=== PATIENT | female | born 1960 | race Caucasian/White ===

== ENCOUNTER 2016-08-19 20:15 | Emergency (ER) | payer OTHER ==
[2016-08-19 20:39] VITALS: RESP 16; TEMP 98.7
[2016-08-19] MEDS ORDERED: HYDROmorphone 1 MG/ML 1 ML SYRINGE IVP STA ×2 (21:05→23:28)
[2016-08-19] MEDS ORDERED: ONDANSETRON 4 MG/2 ML VIAL IVP STA (21:23)
[2016-08-19 21:45] LABS: Basophils % (A) 1 %; CH 30.4; CHCM 33.6; Eosinophils # (A) 0.1 k/uL (0-0.7); Eosinophils % (A) 2 %; HCT 43.9 % (34.0-46.0); HDW 2.52; HGB 14.3 gm/dL (11.4-16.0); Luc # (Auto) 0.14; Luc % (Auto) 2; Lymphocytes # (A) 1.3 k/uL (1.0-4.8); Lymphocytes % (A) 19 %; MCH 29.6 pg (25.0-35.0); MCHC 32.6 g/dL (31.0-37.0); MCV 90.8 fL (80.0-100.0); Mean Platelet Volume 7.3; Monocytes # (A) 0.4 k/uL (0-1.0); Monocytes % (A) 6 %; Neutrophils # (A) 4.7 k/uL (1.3-7.7); Neutrophils % (A) 71 %; RBC 4.83 m/uL (3.80-5.40); RDW 13.2 % (11.5-15.5); WBC 6.6 k/uL (3.8-10.6); WBC (Perox) 6.86
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
[2016-08-19 22:00] LABS: ALT 94 U/L (9-52); AST 94 U/L (14-36); Alcohol <10 mg/dL; Alkaline Phosphatase 51 U/L (38-126); Anion Gap 15 mmol/L; Blood Urea Nitrogen 20 mg/dL (7-17); Calcium 10.6 mg/dL (8.4-10.2); Carbon Dioxide 25 mmol/L (22-30); Chloride 102 mmol/L (98-107); Glucose 117 mg/dL (74-99); Non-African American GFR(MDRD) >60 (>60 ml/min/1.73 sqM); Potassium 4.1 mmol/L (3.5-5.1); Sodium 142 mmol/L (137-145); Total Bilirubin 0.5 mg/dL (0.2-1.3); Total Protein 8.5 g/dL (6.3-8.2)
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
[2016-08-19 22:43] LABS: INR 1.1 (<1.1); Partial Thromboplastin Time 24.9 sec (22.0-30.0); Prothrombin Time 10.7 sec (9.0-12.0)
--- NOTE | 2016-08-19 23:11 | XR ---
EXAM: XR Left Shoulder Complete, 2 or More Views. CLINICAL HISTORY: Reason: trauma TECHNIQUE: Two or more views of the left shoulder. COMPARISON: No relevant prior studies available. FINDINGS: Bones/joints: No evidence of fracture, dislocation or bony erosion. No significant arthritic changes. Soft tissues: Unremarkable. IMPRESSION: No acute bone or joint abnormalities.
--- NOTE | 2016-08-19 23:13 | XR ---
EXAM: XR Chest, 2 Views. CLINICAL HISTORY: Reason: trauma TECHNIQUE: Frontal and lateral views of the chest. COMPARISON: No relevant prior studies available. FINDINGS: Lungs: Lungs are clear. Pleural space: No evidence of pleural effusion. No pneumothorax. Heart: Heart size and mediastinal structures are within normal limits. Mediastinum: Unremarkable. Bones/joints: Unremarkable. IMPRESSION: No evidence of active chest disease.
--- NOTE | 2016-08-19 23:15 | XR ---
EXAM: XR Pelvis, 1 or 2 Views. CLINICAL HISTORY: Reason: Trauma TECHNIQUE: Frontal view of the pelvis. COMPARISON: No relevant prior studies available. FINDINGS: Bones/joints: Sacroiliac joints appear intact bilaterally. No pelvic fracture is identified. No dislocation. Soft tissues: Unremarkable. IMPRESSION: No significant pelvic bony abnormalities. No fractures identified.
--- NOTE | 2016-08-19 23:17 | XR ---
EXAM: XR Left Wrist, 2 Views. CLINICAL HISTORY: Reason: Pain TECHNIQUE: Frontal and lateral views of the left wrist. COMPARISON: No relevant prior studies available. FINDINGS: Bones/joints: No evidence of fracture or dislocation. No bony erosive or bony destructive changes identified. Soft tissues: Unremarkable. No radiopaque foreign body. IMPRESSION: No evidence of fracture or dislocation.
[2016-08-19 23:29] VITALS: BP 112/55; PULSE 87
== END 2016-08-20 00:10 | disposition home or self-care (01) ==
LOC: EC 20:15
DX: S06.0X0A Concussion without loss of consciousness, initial encounter (principal); S40.012A Contusion of left shoulder, initial encounter; M54.2 Cervicalgia; M25.532 Pain in left wrist; R10.2 Pelvic and perineal pain; E78.5 Hyperlipidemia, unspecified; I10 Essential (primary) hypertension; M79.7 Fibromyalgia; Z87.891 Personal history of nicotine dependence; Z79.899 Other long term (current) drug therapy; Z79.891 Long term (current) use of opiate analgesic; Z79.82 Long term (current) use of aspirin; Z91.013 Allergy to seafood; Z88.8 Allergy status to other drugs, medicaments and biological substances; V58.5XXA Driver of pick-up truck or van injured in noncollision transport accident in traffic accident, initial encounter; Y92.410 Unspecified street and highway as the place of occurrence of the external cause
CPT/HCPCS: 99284; 96374; 96375; 96376; 36415; 80053; 85025; 85610; 85730; 80320; 71020; 72170; 73030; 73110; 72125; 70450; 70480; J2405; J1170

== ENCOUNTER 2016-12-06 06:57 | Day surgery (SDC) | payer MEDICARE, OTHER ==
[2016-12-04 11:13] VITALS: BMI 36.7
[~2016-12-06 06:57] MED LIST: LACTATED RINGERS 1,000 ML IV SCH
[2016-12-06 07:30] VITALS: TEMP 98.2
[2016-12-06 07:35] LABS: Glucose,Whole Blood 81 mg/dL (75-99)
[2016-12-06] MEDS ORDERED: MIDAZOLAM 2 MG/2 ML VIAL ONE (07:40)
[2016-12-06] MEDS ORDERED: PROPOFOL 10 MG/ML 20 ML VIAL IV ONE (07:40)
[2016-12-06] MEDS ORDERED: fentaNYL (PF) 50 MCG/ML 2 ML AMP ONE (07:40)
--- NOTE | 2016-12-06 07:49 | P.GSHP ---
History of Present Illness H&P Date: 12/06/16 Chief Complaint: Peptic ulcer disease This is a 56-year-old female. She has complaints of epigastric dull pain. She has history of peptic ulcer disease and GERD. Past Medical History Past Medical History: Diabetes Mellitus, Deep Vein Thrombosis (DVT), Fibromyalgia, Hyperlipidemia, Hypertension Additional Past Medical History / Comment(s): HX ofBILATERAL LEG DVT'S;LUPUS. History of Any Multi-Drug Resistant Organisms: None Reported Past Surgical History: Bladder Surgery, Cholecystectomy, Hysterectomy Additional Past Surgical History / Comment(s): LEFT FOOT SURGERY;STOMACH SURGERY -LAP ELLI;LEFT BREAST TUMOR REMOVAL- BENIGN. Past Anesthesia/Blood Transfusion Reactions: Postoperative Nausea & Vomiting ( PONV) Smoking Status: Former smoker - Past Family History Father Family Medical History: Coronary Artery Disease (CAD), Myocardial Infarction ([place] ) Mother Family Medical History: Cancer, Coronary Artery Disease (CAD), Myocardial Infarction ([place]), Renal Disease Additional Family Medical History / Comment(s): DIALYSIS. Medications and Allergies Home Medications Medication Instructions Recorded Confirmed Type Ergocalciferol [Vitamin D2 1 tab PO Q7D 12/21/13 12/06/16 History (DRISDOL)] Fenofibrate Nanocrystallized 145 mg PO HS 12/21/13 12/06/16 History [Tricor] HYDROcodone/APAP 10-325MG [[place] 1 tab PO QID 12/21/13 12/06/16 History 10-325] Losartan-Hctz 50-12.5 mg [Hyzaar 1 tab PO DAILY 12/21/13 12/06/16 History 50-12.5] Pravastatin Sodium [Pravachol] 40 tab PO HS 12/21/13 12/06/16 History hydrOXYzine HCL 1 tab PO QID 12/21/13 12/06/16 History Omeprazole [PriLOSEC] 40 mg PO HS 12/14/14 12/06/16 History Aspirin 325 mg PO DAILY 12/16/14 12/06/16 History Sertraline HCl [Zoloft] 75 mg PO HS 12/04/16 12/06/16 History Sertraline [Zoloft] 50 mg PO QAM 12/04/16 12/06/16 History glipiZIDE [Glucotrol] 5 mg PO AC-BID 12/04/16 12/06/16 History Allergies Allergy/AdvReac Type Severity Reaction Status Date / Time iodine Allergy Unknown Verified 12/04/16 11:01 shellfish derived [Shrimp] Allergy Swelling Verified 12/04/16 11:01 Surgical - Exam Vital Signs Temp Pulse Resp BP Pulse Ox 98.2 F 73 16 138/63 94 L 12/06/16 07:17 12/06/16 07:17 12/06/16 07:17 12/06/16 07:17 12/06/16 07:17 - General well developed, no distress - Eyes PERRL - ENT normal pinna - Neck no masses - Respiratory normal expansion - Cardiovascular Rhythm: regular - Abdomen Abdomen: soft, non tender Assessment and Plan Plan: History of peptic ulcer disease, epigastric dull pain. We'll perform EGD.
--- NOTE | 2016-12-06 08:01 | P.OP ---
Date of Procedure: 12/06/16 Preoperative Diagnosis: Peptic ulcer disease Postoperative Diagnosis: Mild antral gastritis No evidence of GE junction stricture No evidence of esophagitis Procedure(s) Performed: EGD Implants: Anesthesia: MAC Surgeon: Karson Canseco Pathology: other (Antrum) Condition: stable Disposition: PACU Indications for Procedure: Operative Findings: Description of Procedure: The patient's placed on the endoscopy table lateral position. She received IV sedation. The gastroscope placed oropharynx passed into the esophagus and stomach. The scope was then placed through the pylorus. The first and second portion of the duodenum appeared normal. Scope was then brought back and the antrum and this appeared mildly inflamed. A biopsies performed. Scope was retroflexed and remainder of the stomach appeared normal. The GE junction visualized. There is no evidence of hiatal hernia. The distal esophagus appeared normal. Due to the patient's symptoms of intermittent dysphagia a 20 mm balloon was placed across the GE junction for position for 3 minutes. There is no evidence of any stricture. Scope was withdrawn. The proximal esophagus appeared normal. Scope was withdrawn for patient.
[2016-12-06 08:11] VITALS: BP 119/65
[2016-12-06 08:20] VITALS: PULSE 75; RESP 16
== END 2016-12-06 08:30 | disposition home or self-care (01) ==
LOC: ORWHC2ENDO 06:57
PROVIDERS: ATTEND Surgery
DX: K29.50 Unspecified chronic gastritis without bleeding (principal); R13.10 Dysphagia, unspecified; Z87.11 Personal history of peptic ulcer disease; K21.9 Gastro-esophageal reflux disease without esophagitis; E11.9 Type 2 diabetes mellitus without complications; M79.7 Fibromyalgia; E78.5 Hyperlipidemia, unspecified; I10 Essential (primary) hypertension; J44.9 Chronic obstructive pulmonary disease, unspecified; G47.33 Obstructive sleep apnea (adult) (pediatric); Z86.718 Personal history of other venous thrombosis and embolism; Z79.84 Long term (current) use of oral hypoglycemic drugs; Z79.82 Long term (current) use of aspirin; Z79.891 Long term (current) use of opiate analgesic; Z79.899 Other long term (current) drug therapy; Z91.013 Allergy to seafood; Z91.09 Other allergy status, other than to drugs and biological substances
CPT/HCPCS: 88305; 88342; 43239; 43249; J2250; J3010; J2704; C1726

== ENCOUNTER → 2017-04-16 | Outpatient (CLI) | payer MEDICARE, OTHER ==
--- NOTE | 2017-04-17 11:46 | MM ---
Reason for exam: screening (asymptomatic). Last mammogram was performed 1 year ago. History: Patient is postmenopausal and has history of high-risk lesion on a previous biopsy at age 48. Family history of premenopausal breast cancer in sister at age 42. High risk left breast US guided needle locali of the left breast, September 26, 2009. High risk US left guided VAD of the left breast, June 14, 2009. Benign excisional biopsy of the left breast. Took hormonal contraceptives for 2 years. Took estrogen for 3 years beginning at age 22. Physical Findings: A clinical breast exam by your physician is recommended on an annual basis and results should be correlated with mammographic findings. MG 3D Screening Mammo W/Cad Bilateral CC and MLO view(s) were taken. Prior study comparison: April 02, 2016, bilateral MG 3d screening mammo w/cad. November 04, 2014, bilateral MG screening mammo w CAD. The breast tissue is heterogeneously dense. This may lower the sensitivity of mammography. Finding: There are typically benign vascular, round, linear calcifications in both breasts. Previous mammotome biopsy in the right breast. There is no discrete abnormality. ASSESSMENT: Benign, BI-RAD 2 RECOMMENDATION: Routine screening mammogram of both breasts in 1 year.
== END | disposition home or self-care (01) ==
LOC: RADMAMWWP 16:24
PROVIDERS: ATTEND Family Medicine
DX: Z12.31 Encounter for screening mammogram for malignant neoplasm of breast (principal)
CPT/HCPCS: 77063; G0202

== ENCOUNTER → 2018-02-03 | Outpatient (CLI) | payer MEDICARE, OTHER ==
[2018-02-03 13:54] LABS: Albumin 4.8 g/dL (3.5-5.0); Calcium 9.9 mg/dL (8.4-10.2); Phosphorus 4.1 mg/dL (2.5-4.5); Potassium 4.1 mmol/L (3.5-5.1); Total Bilirubin 0.4 mg/dL (0.2-1.3)
[2018-02-03 14:09] LABS: HCT 44.5 % (34.0-46.0); HGB 14.1 gm/dL (11.4-16.0); MCH 29.6 pg (25.0-35.0); MCHC 31.7 g/dL (31.0-37.0); MCV 93.5 fL (80.0-100.0); Mean Platelet Volume 6.8; Platelet Count 207 k/uL (150-450); RBC 4.76 m/uL (3.80-5.40); RDW 13.1 % (11.5-15.5); WBC 6.2 k/uL (3.8-10.6)
--- NOTE | 2018-02-03 14:51 | US ---
EXAMINATION TYPE: US kidneys/renal and bladder DATE OF EXAM: 02/03/2018 COMPARISON: NONE CLINICAL HISTORY: CKD N18.3. Diabetic EXAM MEASUREMENTS: Right Kidney: 10.5 x 5.2 x 4.1 cm Left Kidney: 11.6 x 5.6 x 5.7 cm Post Void Residual Volume: 32.9 mL Right Kidney: No hydronephrosis or masses seen Left Kidney: No hydronephrosis or masses seen Bladder: not fully prepped/distended Bilateral Jets seen: yes Normal Post Void Residual: yes IMPRESSION: Renal ultrasound as visualized appears within normal limits.
[2018-02-03 14:53] LABS: Appearance,Urine Clear (Clear); Bilirubin,Urine Negative (Negative); Blood,Urine Negative (Negative); Color,Urine Light Yellow; Glucose,Urine (UA) Negative (Negative); Ketones,Urine Negative (Negative); Leukocyte Esterase,Urine Moderate (Negative); Mucus,Urine Rare /hpf; Nitrite,Urine Negative (Negative); Protein,Urine Negative (Negative); RBC,Urine <1 /hpf (0-5); Squamous Epithelial Cell,Urine 1 /hpf (0-4); Urobilinogen,Urine <2.0 mg/dL (<2.0); WBC,Urine 3 /hpf (0-5)
== END | disposition home or self-care (01) ==
LOC: RADUSWWP 13:16
PROVIDERS: ATTEND Internal Medicine Nephrology
DX: N18.9 Chronic kidney disease, unspecified (principal); D63.1 Anemia in chronic kidney disease; N39.0 Urinary tract infection, site not specified; E83.39 Other disorders of phosphorus metabolism
CPT/HCPCS: 36415; 76770; 80053; 81001; 84100; 85027

== ENCOUNTER → 2018-04-22 | Outpatient (CLI) | payer MEDICARE, OTHER ==
--- NOTE | 2018-04-23 12:56 | MM ---
Reason for exam: screening (asymptomatic). Last mammogram was performed 1 year ago. History: Patient is postmenopausal and has history of high-risk lesion on a previous biopsy at age 48. Family history of premenopausal breast cancer in sister at age 42. High risk left breast US guided needle locali of the left breast, September 26, 2009. High risk US left guided VAD of the left breast, June 14, 2009. Benign excisional biopsy of the left breast. Took hormonal contraceptives for 2 years. Took estrogen for 3 years beginning at age 22. MG 3D Screening Mammo W/Cad Bilateral CC and MLO view(s) were taken. Prior study comparison: April 16, 2017, bilateral MG 3d screening mammo w/cad. April 02, 2016, bilateral MG 3d screening mammo w/cad. The breast tissue is heterogeneously dense. This may lower the sensitivity of mammography. Stable benign calcifications. Chronic nodularity bilateral. No significant new finding since most recent study. ASSESSMENT: Benign, BI-RAD 2 RECOMMENDATION: Routine screening mammogram of both breasts in 1 year.
== END ==
LOC: RADMAMWWP 12:27
PROVIDERS: ATTEND Family Medicine
DX: Z12.31 Encounter for screening mammogram for malignant neoplasm of breast (principal)
CPT/HCPCS: 77063; 77067

== ENCOUNTER → 2018-07-31 | Outpatient (CLI) | payer MEDICARE, OTHER ==
--- NOTE | 2018-07-31 14:03 | ECHOF ---
Referral Reason:I49.9 Cardiac arrhythmia, unspecified, R94.31 MEASUREMENTS -------- HEIGHT: 170.2 cm WEIGHT: 91.2 kg BP: RVIDd: 2.2 cm (< 3.3) IVSd: 1.0 cm (0.6 - 1.1) LVIDd: 4.6 cm (3.9 - 5.3) LVPWd: 1.3 cm (0.6 - 1.1) IVSs: 1.4 cm LVIDs: 5.0 cm LVPWs: 0.0 cm LA Diam: 3.4 cm (2.7 - 3.8) Ao Diam: 2.6 cm (2.0 - 3.7) AV Cusp: 1.9 cm (1.5 - 2.6) LA Diam: 4.0 cm (2.7 - 3.8) MV EXCURSION: 19.436 mm (> 18.000) MV EF SLOPE: 105 mm/s (70 - 150) EPSS: 0.6 cm MV E Eitan: 0.61 m/s MV DecT: 244 ms MV A Eitan: 0.49 m/s MV E/A Ratio: 1.24 RAP: 5.00 mmHg RVSP: 14.41 mmHg FINDINGS -------- Sinus rhythm. This was a technically adequate study. LV size, wall thickness and systolic function are normal, with an EF greater than 55%. The left kesha tricular size is normal. The right ventricle is normal in size. The left atrial size is normal. The right atrial size is normal. The aortic valve is trileaflet, and appears structurally normal. No aortic stenosis or regurgitation. Mild mitral annular calcification present. Mild mitral regurgitation is present. Mild tricuspid regurgitation present. There is no evidence of pulmonary hypertension. The right v entricular systolic pressure, as measured by Doppler, is 14.41mmHg. There is no pulmonic regurgitation present. The aortic root size is normal. There is no pericardial effusion. CONCLUSIONS -------- 1. LV size, wall thickness and systolic function are normal, with an EF greater than 55%. 2. The left ventricular size is normal. 3. The right ventricle is normal in size. 4. The left atrial size is normal. 5. The right atrial size is normal. 6. The aortic valve is trileaflet, and appears structurally normal. No aortic stenosis or regurgitati on. 7. Mild mitral annular calcification present. 8. Mild mitral regurgitation is present. 9. Mild tricuspid regurgitation present. 10. There is no evidence of pulmonary hypertension. 11. The right ventricular systolic pressure, as measured by Doppler, is 14.41mmHg. 12. There is no pulmonic regurgitation present. 13. The aortic root size is normal. 14. There is no pericardial effusion. PANMAN: Sabra Orellana RDCS
--- NOTE | 2018-07-31 14:52 | EST ---
EXERCISE STRESS AGE: 58 SEX: F HT: 5'5" WT: 201 PROTOCOL: Jay Stress Test STAGE: II DURATION OF EXERCISE: 7:16 HEART RATE REST: 76 BLOOD PRESSURE REST: 108/66 MAXIMUM HEART RATE ACHIEVED: 132 MAXIMUM BLOOD PRESSURE: 186/76 85% MPHR: 139 100% MPHR: 163 METS: 8.5 INDICATIONS: Chest pain, abnormal EKG. CLINICAL INFORMATION: STRESS DATA: Pretesting physical examination showed heart rate of 76, pressure is 108/66 mmHg. Baseline EKG showed sinus mechanism. The patient exercised on the treadmill according to Jay protocol for a total of 7 minutes and achieved 8.5 METS with max heart rate was 132, which is about which is about 80% of maximum predicted heart rate. Maximum blood pressure was 186/76 mmHg. Clinically, the patient did not have any symptoms of chest pain or discomfort. The EKG did not show any significant ST or T-wave abnormalities concerning for ischemia. CONCLUSION: 1. Good exercise tolerance. 2. Normal EKG at to the heart rate achieved, which is 80% of maximum predicted heart rate. MMPORTIAL / IJN: [id number] /
== END | disposition home or self-care (01) ==
LOC: RADNMMAIN 10:30
PROVIDERS: ATTEND Family Medicine
DX: I08.1 Rheumatic disorders of both mitral and tricuspid valves (principal)
CPT/HCPCS: 93017; 93306

== ENCOUNTER → 2018-12-29 | Outpatient (CLI) | payer MEDICARE, OTHER ==
--- NOTE | 2018-12-29 18:47 | BD ---
EXAMINATION TYPE: Axial Bone Density DATE OF EXAM: 12/29/2018 COMPARISON: NONE CLINICAL HISTORY: 58-year-old female with known osteoporosis Height: 66 Weight: 219.8 FRAX RISK QUESTIONS: Alcohol (3 or more units per day): no Family History (Parent hip fracture): no Glucocorticoids (More than 3mos): no (Ex: prednisone, prednisolone, methylprednisolone, dexamethasone, and hydrocortisone). History of Fracture in Adulthood: no Secondary Osteoporosis: 1. Type 1 Diabetes: no 2. Hyperthyroidism: no 3. Menopause before 45: yes 4. Malnutrition: no 5. Chronic liver disease: no Rheumatoid Arthritis: no Current Tobacco Use: no RISK FACTORS HISTORY OF: Family History of Osteoporosis: no Active: yes Diet low in dairy products/other sources of calcium: yes Postmenopausal woman: hysterectomy around age 26 MEDICATIONS: norco, bp med, vit d , cholesterol med Additional History: EXAM MEASUREMENTS: Bone mineral densitometry was performed using the [employer]. Bone mineral density as measured about the Lumbar spine is: ----- L1-L4(G/cm2): 0.998 T Score Values are as follows: ----- L2: -1.8 ----- L3: -2.5 ----- L4: -1.2 ----- L1-L4: -1.5 Bone mineral density has: decreased -6.5 % since study of: 03.18.2017 Bone mineral density about the R hip (g/cm2): 0.918 Bone mineral density about the L hip (g/cm2): 0.885 T Score values are as follows: -----R Neck: -0.9 -----L Neck: -1.1 -----R Total: 0.5 -----L Total: 0.5 Bone mineral density has: increased 2.2 % since study of: 03.18.2017 IMPRESSION: Osteopenia (T Score between -2.5 and -1). There is slightly increased risk of fracture and the patient may be considered for treatment. Re-Screen 2-5 years. NOTE: T-SCORE=SD OF THE YOUNG ADULT MEAN.
--- NOTE | 2018-12-30 04:38 | US ---
EXAMINATION TYPE: US carotid duplex BILAT DATE OF EXAM: 12/29/2018 COMPARISON: NONE CLINICAL HISTORY: 58-year-old female R42 VERTIGO. TECHNIQUE: Carotid duplex ultrasound examination. Indirect Doppler criteria was utilized. 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 Technically difficult, short thick neck. IMPRESSION: No hemodynamically significant stenosis appreciated in either internal carotid artery. Criteria for Assigning % of Stenosis / Diameter reduction (Estimation based on the indirect measurements of the internal carotid artery velocities (ICA PSV). 1. Normal (no stenosis)=ICA PSV < 125 cm/s: ratio < 2.0: ICA EDV<40 cm/s. 2. Less than 50% stenosis=ICA PSV < 125 cm/s: ratio < 2.0: ICA EDV<40 cm/s. 3. 50 to 69% stenosis=ICA PSV of 125 to 230 cm/s: ration 2.0 ? 4.0: ICA EDV 40-100 cm/s. 4. Greater than 70% stenosis to near occlusion= ICA PSV > 230 cm/s: ratio > 4.0: ICA EDV > 100 cm/s. 5. Near occlusion= ICA PSV velocities may be low or undetectable: variable ratio and ICA EDV. 6. Total occlusion=unable to detect flow.
== END | disposition home or self-care (01) ==
LOC: RADUSWWP 14:20
PROVIDERS: ATTEND Family Medicine
DX: R42 Dizziness and giddiness (principal); M85.80 Other specified disorders of bone density and structure, unspecified site
CPT/HCPCS: 77080; 93880

== ENCOUNTER → 2019-02-10 | Outpatient (CLI) | payer MEDICARE, OTHER ==
[2019-02-10 13:50] LABS: Basophils % (A) 1 %; Eosinophils # (A) 0.2 k/uL (0-0.7); Eosinophils % (A) 3 %; HCT 43.9 % (34.0-46.0); HGB 14.5 gm/dL (11.4-16.0); Lymphocytes # (A) 1.6 k/uL (1.0-4.8); Lymphocytes % (A) 28 %; MCH 30.2 pg (25.0-35.0); MCHC 33.1 g/dL (31.0-37.0); MCV 91.3 fL (80.0-100.0); Mean Platelet Volume 6.9; Monocytes # (A) 0.4 k/uL (0-1.0); Monocytes % (A) 7 %; Neutrophils # (A) 3.3 k/uL (1.3-7.7); Neutrophils % (A) 59 %; Platelet Count 186 k/uL (150-450); RBC 4.81 m/uL (3.80-5.40); RDW 13.3 % (11.5-15.5); WBC 5.6 k/uL (3.8-10.6)
[2019-02-10 20:12] LABS: African American GFR (CKD) 72.4 (60.0-200.0); Anion Gap 10.4 mmol/L (4.00-12.00); Calcium 9.7 mg/dL (8.7-10.3); Carbon Dioxide 29.6 mmol/L (21.6-31.8); Potassium 4.1 mmol/L (3.5-5.5)
[2019-02-10 21:31] LABS: Creatinine,Urine Random 158.3 mg/dL
[2019-02-10 21:43] LABS: Total Protein,Urine Random 50.4 mg/dL (0.0-13.5)
== END | disposition home or self-care (01) ==
LOC: LABWHC1 12:37
PROVIDERS: ATTEND Internal Medicine Nephrology
DX: N17.9 Acute kidney failure, unspecified (principal); N39.0 Urinary tract infection, site not specified
CPT/HCPCS: 36415; 80048; 82570; 84156; 85025

== ENCOUNTER → 2019-03-16 | Outpatient (CLI) | payer MEDICARE, OTHER ==
[~2019-03-16] MED LIST changes: -LACTATED RINGERS 1,000 ML IV SCH; +SODIUM CHLORIDE 0.9% 500 ML 500 ML in EMPTY BAG 1 BAG IV PRN; +ZOLEDRONIC ACID 5 MG in SODIUM CHLORIDE 0.9% 100 ML IV NR
[2019-03-16 10:57] VITALS: BP 110/65; PULSE 70; RESP 16; TEMP 98.3
== END ==
LOC: PROCWHC3 10:31
PROVIDERS: ATTEND Family Medicine
DX: M81.0 Age-related osteoporosis without current pathological fracture (principal); Z91.048 Other nonmedicinal substance allergy status
CPT/HCPCS: 96365; J3489

== ENCOUNTER → 2019-05-26 | Outpatient (CLI) | payer MEDICARE, OTHER ==
--- NOTE | 2019-05-26 10:20 | CT ---
EXAMINATION TYPE: CT chest w con DATE OF EXAM: 05/26/2019 COMPARISON: CT chest 05/17/2010 HISTORY: Abnormal exam of lung field CT DLP: 529.2 mGycm, Automated exposure control for dose reduction was used. CONTRAST: Performed injected with 100 mL of Isovue 300. TECHNIQUE: Axial images were obtained at 5 mm thick sections. Reconstructed images are reviewed on [employer] computer in the coronal plane. FINDINGS: Portion of the thyroid visualized is normal. A 0.3 cm nodule may be in the right lung base. Series 4 image 39. Small densities in the anterior rig ht middle lobe measuring 0.5 cm. Series 4 image 39. This second area may have been present on the [place] 05/17/2010 exam without interval growth. Some mild thickening along the major fissure near the level of the lingula is present. Minimal pneumonitis changes within the lingula. No enlarged mediastinal or hilar adenopathy is evident. The ascending aorta diameter at the level o f the main pulmonary artery is 2.8 cm. The main pulmonary artery diameter at the bifurcation is 2.[address] sections are obtained through the upper abdomen. Abdomen is essentially unremarkable. IMPRESSIONS: 1. Couple of small densities within the right lower lung field. Follow-up CT chest in 6 months is rec ommended.
== END | disposition home or self-care (01) ==
LOC: RADCTMAIN 07:34
PROVIDERS: ATTEND Family Medicine
DX: J98.4 Other disorders of lung (principal); Z91.048 Other nonmedicinal substance allergy status
CPT/HCPCS: 82565; 84520; 71260; 36415; Q9967

== ENCOUNTER 2019-06-18 06:54 | Day surgery (SDC) | payer MEDICARE, BC, OTHER ==
[2019-06-15 13:29] VITALS: BMI 32.3
[~2019-06-18 06:54] MED LIST changes: +LACTATED RINGERS 1,000 ML IV SCH; -SODIUM CHLORIDE 0.9% 500 ML 500 ML in EMPTY BAG 1 BAG IV PRN; -ZOLEDRONIC ACID 5 MG in SODIUM CHLORIDE 0.9% 100 ML IV NR
[2019-06-18 07:10] VITALS: TEMP 96.8
[2019-06-18 07:14] LABS: Glucose,Whole Blood 110 mg/dL (75-99)
[2019-06-18] MEDS ORDERED: GLYCOPYRROLATE 0.2 MG/ML 2 ML VIAL ONE (07:39)
[2019-06-18] MEDS ORDERED: PROPOFOL 10 MG/ML 20 ML VIAL IV ONE (07:39)
[2019-06-18] MEDS ORDERED: LIDOCAINE 1% INJ 10MG/ML (20 ML MDV) ONE (07:39)
--- NOTE | 2019-06-18 07:55 | P.GSHP ---
History of Present Illness H&P Date: 06/18/19 Chief Complaint: Gastritis This a 58-year-old female complaints of some epigastric abdominal pain. Patient rents today for EGD for gastritis evaluation Past Medical History Past Medical History: Diabetes Mellitus, Deep Vein Thrombosis (DVT), Fibromyalgia, GERD/Reflux, Hyperlipidemia, Osteoarthritis (OA), Sleep Apnea/CPAP/BIPAP Additional Past Medical History / Comment(s): HX of BILATERAL LEG DVT'S;LUPUS. n o cpap used, abdominal pain and upset stomach. rash on extremities for "years", "borderline diabetic" History of Any Multi-Drug Resistant Organisms: None Reported Past Surgical History: Bladder Surgery, Breast Surgery, Cholecystectomy, Hysterectomy, Orthopedic Surgery Additional Past Surgical History / Comment(s): LEFT FOOT bunionectomy, LAP ELLI fundoplication, LEFT BREAST lumpectomy Past Anesthesia/Blood Transfusion Reactions: Postoperative Nausea & Vomiting (PONV) Smoking Status: Former smoker - Past Family History Father Family Medical History: Coronary Artery Disease (CAD), Myocardial Infarction ([place]) Mother Family Medical History: Cancer Additional Family Medical History / Comment(s): . Sister(s) Family Medical History: Cancer Medications and Allergies Home Medications Medication Instructions Recorded Confirmed Type Fenofibrate Nanocrystallized 145 mg PO HS 12/21/13 06/18/19 History [Tricor] Losartan-Hctz 50-12.5 mg [Hyzaar 1 tab PO DAILY 12/21/13 06/18/19 History 50-12.5] Pravastatin Sodium [Pravachol] 40 tab PO HS 12/21/13 06/18/19 History Aspirin 325 mg PO DAILY 12/16/14 06/18/19 History Sertraline [Zoloft] 50 mg PO QAM 12/04/16 06/18/19 History glipiZIDE [Glucotrol] 5 mg PO AC-BID 12/04/16 06/18/19 History Albuterol Sulfate [Ventolin HFA] 1 - 2 puff INHALATION DIRECTED 06/15/19 06/18/19 History PRN Cranberry Tab 420 mg PO DAILY 06/15/19 06/18/19 History Ergocalciferol [Vitamin D2] 50,000 unit PO WE 06/15/19 06/18/19 History HYDROcodone/APAP 7.5-325MG [[place] 1 tab PO TID 06/15/19 06/18/19 History 7.5-325] Omeprazole [PriLOSEC] 20 mg PO AC-BRKFST 06/15/19 06/18/19 History Sertraline [Zoloft] 100 mg PO HS 06/15/19 06/18/19 History Allergies Allergy/AdvReac Type Severity Reaction Status Date / Time iodine Allergy Lip Verified 06/15/19 13:11 Swelling shellfish derived [Shrimp] Allergy Swelling Verified 06/15/19 13:11 Surgical - Exam Vital Signs Temp Pulse Resp BP Pulse Ox 96.8 F L 66 14 157/73 100 06/18/19 07:08 06/18/19 07:08 06/18/19 07:08 06/18/19 07:08 06/18/19 07:08 - General well developed, well nourished, no distress - Eyes PERRL - ENT normal pinna - Neck no masses - Respiratory normal expansion - Cardiovascular Rhythm: regular - Abdomen Abdomen: soft, non tender Results - Labs Abnormal Lab Results - Last 24 Hours (Table) 06/18/19 Range/Units 07:10 POC Glucose (mg/dL) 110 H (75-99) mg/dL Assessment and Plan Assessment: Epigastric abdominal pain We'll perform EGD tonight for gastritis
--- NOTE | 2019-06-18 08:03 | P.OP ---
Date of Procedure: 06/18/19 Preoperative Diagnosis: Gastritis Postoperative Diagnosis: Antral gastritis Procedure(s) Performed: The patient was placed on the endoscopy table in the lateral position. She received IV sedation the gastroscope placed oropharynx passed in the esophagus s tomach. Scope then placed through the pylorus. The first and second portion of the duodenum. Normal. Scope was then brought back the antrum and this appeared inflamed. A biopsies performed. The scope was unretroflexed and remainder the stomach appeared normal. There was no significant hiatal hernia. The GE junction was at 47 is. The distal esophagusAppeared normal. There is known to any inflammation or reflux. The proximal esophagus.. Scope was withdrawn for patient.
[2019-06-18 08:06] VITALS: PULSE 76; RESP 16
[2019-06-18 08:20] VITALS: BP 112/56
== END 2019-06-18 08:25 | disposition home or self-care (01) ==
LOC: ORWHC2ENDO 06:54
PROVIDERS: ATTEND Surgery
DX: K29.50 Unspecified chronic gastritis without bleeding (principal); K27.9 Peptic ulcer, site unspecified, unspecified as acute or chronic, without hemorrhage or perforation; E11.9 Type 2 diabetes mellitus without complications; M79.7 Fibromyalgia; M32.9 Systemic lupus erythematosus, unspecified; K21.9 Gastro-esophageal reflux disease without esophagitis; E78.5 Hyperlipidemia, unspecified; M19.90 Unspecified osteoarthritis, unspecified site; G47.30 Sleep apnea, unspecified; Z99.89 Dependence on other enabling machines and devices; Z86.718 Personal history of other venous thrombosis and embolism; Z90.49 Acquired absence of other specified parts of digestive tract; Z98.890 Other specified postprocedural states; Z90.710 Acquired absence of both cervix and uterus; Z87.891 Personal history of nicotine dependence; Z82.49 Family history of ischemic heart disease and other diseases of the circulatory system; Z79.82 Long term (current) use of aspirin; Z79.84 Long term (current) use of oral hypoglycemic drugs; Z79.899 Other long term (current) drug therapy; Z91.048 Other nonmedicinal substance allergy status; Z91.013 Allergy to seafood
CPT/HCPCS: 88305; 43239; J2001; J2704

== ENCOUNTER → 2019-12-28 | Outpatient (CLI) | payer BC, MEDICARE | END | disposition home or self-care (01) | LOC: LABWHC1 14:25 | PROVIDERS: ATTEND Psychiatry & Neurology Pain Medicine | DX: E55.9 Vitamin D deficiency, unspecified (principal); R53.83 Other fatigue | CPT/HCPCS: 36415; 82306; 82607 ==

== ENCOUNTER 2020-01-28 15:03 | Emergency (ER) | payer BC, MEDICARE ==
[2020-01-28] MEDS ORDERED: SODIUM CHLORIDE 0.9% 1,000 ML IV STA (15:19)
[2020-01-28] MEDS ORDERED: KETOROLAC 15 MG/ML 1 ML VIAL IVP STA (15:19)
--- NOTE | 2020-01-28 15:28 | ED ---
Abdominal Pain HPI - General Chief Complaint: Abdominal Pain Stated Complaint: abd pain Time Seen by Provider: 01/28/20 15:08 Source: patient Mode of arrival: ambulatory Limitations: no limitations - History of Present Illness Initial Comments: Patient is a 59-year-old female presenting to the emergency department from her PCPs office with complaints of abdominal pain that has been increasing over the past 2 weeks. She states the pain is mostly on her entire lower abdomen, it is sharp at times. She states other than intensity decreases the pain is been constant. She does have history of appendectomy, hysterectomy, cholecystectomy. She denies fever, chills, nausea or vomiting. She states her appetite has been decreased. She denies any chest pain or shortness of breath. She denies any urinary complaints. She states she was on antibiotics one week ago as she did a visit over the phone and she was treated for possible UTI. Patient states her symptoms have persisted through that. She denies any diarrhea, she's been having normal bowel movements. There are no further complaints at this time. Upon arrival to the ER, her vitals are stable. - Related Data Home Medications Medication Instructions Recorded Confirmed Fenofibrate Nanocrystallized 145 mg PO HS 12/21/13 06/18/19 [Tricor] Losartan-Hctz 50-12.5 mg [Hyzaar 1 tab PO DAILY 12/21/13 06/18/19 50-12.5] Pravastatin Sodium [Pravachol] 40 tab PO HS 12/21/13 06/18/19 Aspirin 325 mg PO DAILY 12/16/14 06/18/19 Sertraline [Zoloft] 50 mg PO QAM 12/04/16 06/18/19 glipiZIDE [Glucotrol] 5 mg PO AC-BID 12/04/16 06/18/19 Albuterol Sulfate [Ventolin HFA] 1 - 2 puff INHALATION DIRECTED 06/15/19 06/18/19 PRN Cranberry Tab 420 mg PO DAILY 06/15/19 06/18/19 Ergocalciferol [Vitamin D2] 50,000 unit PO WE 06/15/19 06/18/19 HYDROcodone/APAP 7.5-325MG [[place] 1 tab PO TID 06/15/19 06/18/19 7.5-325] Omeprazole [PriLOSEC] 20 mg PO AC-BRKFST 06/15/19 06/18/19 Sertraline [Zoloft] 100 mg PO HS 06/15/19 06/18/19 Previous Rx's Medication Instructions Recorded Omeprazole 40 mg PO DAILY #60 capsule. 06/18/19 Amoxicillin/Potassium Clav 1 tab PO BID 7 Days #14 tab 01/28/20 [Augmentin 875-125 Tablet] Allergies Allergy/AdvReac Type Severity Reaction Status Date / Time iodine Allergy Lip Verified 01/28/20 15:06 Swelling shellfish derived [Shrimp] Allergy Swelling Verified 01/28/20 15:06 Review of Systems ROS Statement: Those systems with pertinent positive or pertinent negative responses have been documented in the HPI. ROS Other: All systems not noted in ROS Statement are negative. Past Medical History Past Medical History: Diabetes Mellitus, Deep Vein Thrombosis (DVT), Fibromyalgia, Hyperlipidemia, Hypertension Additional Past Medical History / Comment(s): HX ofBILATERAL LEG DVT'S;LUPUS. History of Any Multi-Drug Resistant Organisms: None Reported Past Surgical History: Bladder Surgery, Cholecystectomy, Hysterectomy Additional Past Surgical History / Comment(s): LEFT FOOT SURGERY;STOMACH SURGERY-LAP ELLI;LEFT BREAST TUMOR REMOVAL- BENIGN. Past Anesthesia/Blood Transfusion Reactions: Postoperative Nausea & Vomiting (PONV) Past Psychological History: Depression Smoking Status: Never smoker Past Alcohol Use History: None Reported Past Drug Use History: None Reported - Past Family History Father Family Medical History: Coronary Artery Disease (CAD), Myocardial Infarction ([place]) Mother Family Medical History: Cancer Additional Family Medical History / Comment(s): . Sister(s) Family Medical History: Cancer General Exam - General Exam Comments Initial Comments: GENERAL: Patient is well-developed and well-nourished. Patient is nontoxic and in no acute distress. HEAD: Atraumatic, normocephalic. EYES: Pupils equal round and reactive to light, extraocular movements intact, sclera anicteric, conjunctiva are normal. Eyelids were unremarkable. ENT: TMs normal, nares patent, oropharynx clear without exudates. Moist mucous membranes. NECK: Normal range of motion, supple without lymphadenopathy or JVD. LUNGS: Unlabored respirations. Breath sounds clear to auscultation bilaterally and equal. No wheezes rales or rhonchi. HEART: Regular rate and rhythm without murmurs, rubs or gallops. ABDOMEN: Tender to palpation of the lower abdomen, right and left-sided, suprapubic. Soft, normoactive bowel sounds. No guarding, no rebound. No masses appreciated. : Deferred MUSCULOSKELETAL: Normal extremities with adequate strength and normal range of motion, no pitting or edema. No clubbing or cyanosis. NEUROLOGICAL: Patient is alert and oriented x 3. Motor and sensory are also intact. Cranial nerves II through XII grossly intact. Symmetrical smile. Normal speech, normal gait. PSYCH: Normal mood, normal affect. SKIN: Warm, Dry, normal turgor, no rashes or lesions noted. Limitations: no limitations Course Vital Signs 01/28/20 15:05 Temperature 98.2 F Pulse Rate 91 Respiratory 20 Rate Blood Pressure 142/76 O2 Sat by Pulse 96 Oximetry Medical Decision Making - Medical Decision Making Patient is a 59-year-old female here for lower abdominal pain has been increasing over the past 2 weeks. She did see her PCP today who sent her into the ER for further evaluation. She has history of appendectomy, cholecystectomy, hysterectomy. Her vitals are stable upon arrival. She does have lower abdominal tenderness, both left and right-sided. Patient's lab work shows no acute abnormalities, normal white count, normal lactic acid, lipase is 62. Computed tomography scan shows proximal sigmoid diverticulitis without complications. Patient was given fluids, Toradol for pain and is resting comfortably. I discussed these findings with her. I will start patient on Augmentin for mild diverticulitis. She is stable for discharge. Patient states she already takes [place] as at home, I did discuss alternating with ibuprofen. She is in agreement with this plan of care. She'll follow-up with her PCP. Return parameters were discussed with the patient and she verbalized understanding. Case discussed with Dr. Robles. - Lab Data Result diagrams: 01/28/20 15:34 01/28/20 15:34 Lab Results 01/28/20 01/28/20 01/28/20 Range/Units 15:34 15:34 15:34 WBC 7.6 (3.8-10.6) k/uL RBC 4.59 (3.80-5.40) m/uL Hgb 13.8 (11.4-16.0) gm/dL Hct 43.0 (34.0-46.0) % MCV 93.7 (80.0-100.0) fL MCH 30.0 (25.0-35.0) pg MCHC 32.0 (31.0-37.0) g/dL RDW 13.3 (11.5-15.5) % Plt Count 204 (150-450) k/uL Neutrophils % 69 % Lymphocytes % 21 % Monocytes % 7 % Eosinophils % 1 % Basophils % 1 % Neutrophils # 5.2 (1.3-7.7) k/uL Lymphocytes # 1.6 (1.0-4.8) k/uL Monocytes # 0.5 (0-1.0) k/uL Eosinophils # 0.1 (0-0.7) k/uL Basophils # 0.0 (0-0.2) k/uL PT 9.9 (9.0-12.0) sec INR 0.9 (<1.2) APTT 25.6 (22.0-30.0) sec Sodium (137-145) mmol/L Potassium (3.5-5.1) mmol/L Chloride (98-107) mmol/L Carbon Dioxide (22-30) mmol/L Anion Gap mmol/L BUN (7-17) mg/dL Creatinine (0.52-1.04) mg/dL Est GFR (CKD-EPI)AfAm (>60 ml/min/1.73 sqM) Est GFR (CKD-EPI)NonAf (>60 ml/min/1.73 sqM) Glucose (74-99) mg/dL Plasma Lactic Acid Teo (0.7-2.0) mmol/L Calcium (8.4-10.2) mg/dL Total Bilirubin (0.2-1.3) mg/dL AST (14-36) U/L ALT (4-34) U/L Alkaline Phosphatase (38-126) U/L Total Protein (6.3-8.2) g/dL Albumin (3.5-5.0) g/dL Amylase (30-110) U/L Lipase (23-300) U/L Urine Color Yellow Urine Appearance Clear (Clear) Urine pH 5.5 (5.0-8.0) Ur Specific [place] 1.025 (1.001-1.035) Urine Protein 1+ H (Negative) Urine Glucose (UA) Negative (Negative) Urine Ketones Negative (Negative) Urine Blood Negative (Negative) Urine Nitrite Negative (Negative) Urine Bilirubin Negative (Negative) Urine Urobilinogen <2.0 (<2.0) mg/dL Ur Leukocyte Esterase Small H (Negative) Urine RBC 3 (0-5) /hpf Urine WBC 3 (0-5) /hpf Ur Squamous Epith Cells <1 (0-4) /hpf Calcium Oxalate Crystal Few H (None) /hpf Hyaline Casts 3 H (0-2) /lpf Urine Mucus Many H (None) /hpf 01/28/20 01/28/20 Range/Units 15:34 15:34 WBC (3.8-10.6) k/uL RBC (3.80-5.40) m/uL Hgb (11.4-16.0) gm/dL Hct (34.0-46.0) % MCV (80.0-100.0) fL MCH (25.0-35.0) pg MCHC (31.0-37.0) g/dL RDW (11.5-15.5) % Plt Count (150-450) k/uL Neutrophils % % Lymphocytes % % Monocytes % % Eosinophils % % Basophils % % Neutrophils # (1.3-7.7) k/uL Lymphocytes # (1.0-4.8) k/uL Monocytes # (0-1.0) k/uL Eosinophils # (0-0.7) k/uL Basophils # (0-0.2) k/uL PT (9.0-12.0) sec INR (<1.2) APTT (22.0-30.0) sec Sodium 139 (137-145) mmol/L Potassium 4.1 (3.5-5.1) mmol/L Chloride 102 (98-107) mmol/L Carbon Dioxide 27 (22-30) mmol/L Anion Gap 10 mmol/L BUN 21 H (7-17) mg/dL Creatinine 0.82 (0.52-1.04) mg/dL Est GFR (CKD-EPI)AfAm >90 (>60 ml/min/1.73 sqM) Est GFR (CKD-EPI)NonAf 79 (>60 ml/min/1.73 sqM) Glucose 149 H (74-99) mg/dL Plasma Lactic Acid Teo 1.3 (0.7-2.0) mmol/L Calcium 9.7 (8.4-10.2) mg/dL Total Bilirubin 0.7 (0.2-1.3) mg/dL AST 31 (14-36) U/L ALT 32 (4-34) U/L Alkaline Phosphatase 49 (38-126) U/L Total Protein 7.6 (6.3-8.2) g/dL Albumin 4.6 (3.5-5.0) g/dL Amylase 48 (30-110) U/L Lipase 62 (23-300) U/L Urine Color Urine Appearance (Clear) Urine pH (5.0-8.0) Ur Specific [place] (1.001-1.035) Urine Protein (Negative) Urine Glucose (UA) (Negative) Urine Ketones (Negative) Urine Blood (Negative) Urine Nitrite (Negative) Urine Bilirubin (Negative) Urine Urobilinogen (<2.0) mg/dL Ur Leukocyte Esterase (Negative) Urine RBC (0-5) /hpf Urine WBC (0-5) /hpf Ur Squamous Epith Cells (0-4) /hpf Calcium Oxalate Crystal (None) /hpf Hyaline Casts (0-2) /lpf Urine Mucus (None) /hpf Disposition Clinical Impression: Sigmoid diverticulitis, Abdominal pain Disposition: HOME SELF-CARE Condition: Stable Instructions (If sedation given, give patient instructions): Diverticulitis (ED) Additional Instructions: Please return to the Emergency Department if symptoms worsen or any other concerns. Take antibiotic as prescribed. May alternate pain medicine at home with ibuprofen. Continued to increase fluid intake. Follow-up with PCP. Prescriptions: Amoxicillin/Potassium Clav [Augmentin 875-125 Tablet] 1 tab PO BID 7 Days #14 tab Is patient prescribed a controlled substance at d/c from ED?: No Referrals: Ursula Bolton DO [Primary Care Provider] - 1-2 days
[2020-01-28] MEDS ORDERED: FAMOTIDINE 20 MG/2 ML VIAL IV STA (15:32)
[2020-01-28] MEDS ORDERED: diphenhydrAMINE 50 MG/ML 1 ML VIAL IVP STA (15:32)
[2020-01-28] MEDS ORDERED: methylPREDNISolone SOD SUCCI 125 MG/2 ML VIAL IV STA (15:32)
[2020-01-28 16:00] LABS: Basophils % (A) 1 %; Eosinophils # (A) 0.1 k/uL (0-0.7); Eosinophils % (A) 1 %; HGB 13.8 gm/dL (11.4-16.0); Lymphocytes # (A) 1.6 k/uL (1.0-4.8); Lymphocytes % (A) 21 %; MCV 93.7 fL (80.0-100.0); Mean Platelet Volume 7.4; Monocytes # (A) 0.5 k/uL (0-1.0); Monocytes % (A) 7 %; Neutrophils # (A) 5.2 k/uL (1.3-7.7); Neutrophils % (A) 69 %; Platelet Count 204 k/uL (150-450); RBC 4.59 m/uL (3.80-5.40); RDW 13.3 % (11.5-15.5); WBC 7.6 k/uL (3.8-10.6)
[2020-01-28 16:10] LABS: ALT 32 U/L (4-34); AST 31 U/L (14-36); African American GFR (CKD) >90 (>60 ml/min/1.73 sqM); Albumin 4.6 g/dL (3.5-5.0); Alkaline Phosphatase 49 U/L (38-126); Amylase 48 U/L (30-110); Anion Gap 10 mmol/L; Blood Urea Nitrogen 21 mg/dL (7-17); Calcium 9.7 mg/dL (8.4-10.2); Carbon Dioxide 27 mmol/L (22-30); Chloride 102 mmol/L (98-107); Glucose 149 mg/dL (74-99); Non-African American GFR(CKD) 79 (>60 ml/min/1.73 sqM); Potassium 4.1 mmol/L (3.5-5.1); Sodium 139 mmol/L (137-145); Total Bilirubin 0.7 mg/dL (0.2-1.3); Total Protein 7.6 g/dL (6.3-8.2)
[2020-01-28 16:22] LABS: INR 0.9 (<1.2); Partial Thromboplastin Time 25.6 sec (22.0-30.0); Prothrombin Time 9.9 sec (9.0-12.0)
--- NOTE | 2020-01-28 16:45 | CT ---
EXAMINATION TYPE: CT abdomen pelvis w con DATE OF EXAM: 01/28/2020 COMPARISON: 10/16/2012 HISTORY: Lower abdominal pain. CT DLP: 1684.6 mGycm Automated exposure control for dose reduction was used. CONTRAST: Performed with IV Contrast, patient injected with 100 mL of Isovue 300. Lung bases are clear. There is no pleural effusion. Heart size is normal. There is no pericardial eff usion. Liver shows no focal defect. There are clips from cholecystectomy. Spleen is intact. There are clips at the gastric fundus. Stomach is intact. Pancreas appears normal. The bile ducts are not dilated. There is no adrenal mass. Kidneys show satisfactory contrast opacification. There is no hydronephrosi s. Ureters are not dilated. Abdominal aorta is atheromatous. There is no retroperitoneal adenopathy. Bladder distends smoothly. There is no inguinal hernia. There is no free fluid in the pelvis. There is fat stranding around the mid sigmoid colon with multiple sigmoid diverticula. There is no ev idence of free air. There is no ascites. Appendix is not seen. There is no sign of thickened appendix . Lumbar vertebra have normal alignment. Disc spaces are fairly normal. There is no compression fract ure. There is some narrowing at L5-S1 with vacuum disc and spur formation. IMPRESSION: There is proximal sigmoid diverticulitis. No drainable fluid collection. This is a change compared to old exam. There is sigmoid diverticulosis. There is some improvement in the fatty infiltration of th e liver compared to old exam.
[2020-01-28] MEDS ORDERED: AMOXIC-POT CLAV 875-125MG 1 EACH TAB PO STA (17:12)
[2020-01-28 17:17] LABS: Appearance,Urine Clear (Clear); Bilirubin,Urine Negative (Negative); Blood,Urine Negative (Negative); Calcium Oxalate Crystals,Urine Few /hpf; Color,Urine Yellow; Glucose,Urine (UA) Negative (Negative); Hyaline Casts,Urine 3 /lpf (0-2); Ketones,Urine Negative (Negative); Leukocyte Esterase,Urine Small (Negative); Mucus,Urine Many /hpf; Nitrite,Urine Negative (Negative); PH, Urine 5.5 (5.0-8.0); Protein,Urine 1+ (Negative); RBC,Urine 3 /hpf (0-5); Specific Gravity,Urine 1.025 (1.001-1.035); Squamous Epithelial Cell,Urine <1 /hpf (0-4); Urobilinogen,Urine <2.0 mg/dL (<2.0); WBC,Urine 3 /hpf (0-5)
[2020-01-28 17:29] VITALS: BP 131/71; PULSE 78; RESP 18; TEMP 98.3
== END 2020-01-28 17:28 | disposition home or self-care (01) ==
LOC: EC 15:03
DX: K57.32 Diverticulitis of large intestine without perforation or abscess without bleeding (principal); F32.9 Major depressive disorder, single episode, unspecified; E11.9 Type 2 diabetes mellitus without complications; M79.7 Fibromyalgia; E78.5 Hyperlipidemia, unspecified; I10 Essential (primary) hypertension; Z79.899 Other long term (current) drug therapy; Z79.891 Long term (current) use of opiate analgesic; Z79.82 Long term (current) use of aspirin; Z90.49 Acquired absence of other specified parts of digestive tract; Z90.710 Acquired absence of both cervix and uterus; Z91.048 Other nonmedicinal substance allergy status; Z91.013 Allergy to seafood; Z86.718 Personal history of other venous thrombosis and embolism; Z79.84 Long term (current) use of oral hypoglycemic drugs
CPT/HCPCS: 36415; 80053; 82150; 83605; 83690; 85025; 85610; 85730; 81001; 74177; 99284; 96374; 96375 ×3; 96361; J1200; J2930; J1885; Q9967

== ENCOUNTER 2020-07-10 12:14 | Day surgery (SDC) | payer BC, MEDICARE ==
[2020-07-06 11:04] VITALS: BMI 32.3
[2020-07-10 12:41] VITALS: TEMP 98.4
[2020-07-10] MEDS ORDERED: LIDOCAINE 1% (10MG/ML) FOR IV START INTRADERMA PRN (12:41)
[2020-07-10] MEDS ORDERED: LACTATED RINGERS 1,000 ML IV SCH (12:41)
[2020-07-10 12:53] LABS: Glucose,Whole Blood 121 mg/dL (75-99)
[2020-07-10] MEDS ORDERED: PROPOFOL 10 MG/ML 20 ML VIAL IV ONE (13:32)
[2020-07-10 14:08] VITALS: RESP 16
--- NOTE | 2020-07-10 14:16 | P.GSHP ---
History of Present Illness H&P Date: 07/10/20 Chief Complaint: Diverticulitis This a 51-year-old female with history of diverticulitis. Patient presents today for colonoscopy. Past Medical History Past Medical History: Asthma, Diabetes Mellitus, Deep Vein Thrombosis (DVT), Fibromyalgia, Hyperlipidemia, Hypertension, Sleep Apnea/CPAP/BIPAP Additional Past Medical History / Comment(s): hx of nikia DVT, Lupus, diverticulitis, currently cpap is not working History of Any Multi-Drug Resistant Organisms: None Reported Past Surgical History: Bladder Surgery, Cholecystectomy, Hysterectomy, Orthopedic Surgery Additional Past Surgical History / Comment(s): LEFT FOOT SURGERY; LAP ELLI; benign left breast tumor Past Anesthesia/Blood Transfusion Reactions: Postoperative Nausea & Vomiting (PONV) Smoking Status: Former smoker - Past Family History Father Family Medical History: Coronary Artery Disease (CAD), Myocardial Infarction ([place]) Mother Family Medical History: Cancer Additional Family Medical History / Comment(s): . Sister(s) Family Medical History: Cancer Medications and Allergies Home Medications Medication Instructions Recorded Confirmed Type Fenofibrate Nanocrystallized 145 mg PO HS 12/21/13 07/10/20 History [Tricor] Losartan-Hctz 50-12.5 mg [Hyzaar 1 tab PO DAILY 12/21/13 07/10/20 History 50-12.5] Pravastatin Sodium [Pravachol] 40 tab PO HS 12/21/13 07/10/20 History Aspirin 325 mg PO DAILY 12/16/14 07/10/20 History Sertraline [Zoloft] 50 mg PO QAM 12/04/16 07/10/20 History Albuterol Sulfate [Ventolin HFA] 1 - 2 puff INHALATION DIRECTED 06/15/19 07/10/20 History PRN [place] Tab 420 mg PO DAILY 06/15/19 07/10/20 History Sertraline [Zoloft] 100 mg PO HS 06/15/19 07/10/20 History Biotin 5 mg PO DAILY 07/06/20 07/10/20 History Cyclobenzaprine [Flexeril] 10 mg PO BID 07/06/20 07/10/20 History Hydrocodone/Acetaminophen [[place] 1 tab PO TID 07/06/20 07/10/20 History Hd 10-325 mg Tablet] metFORMIN HCL [metFORMIN HCL ER] 500 mg PO BID 07/06/20 07/10/20 History Allergies Allergy/AdvReac Type Severity Reaction Status Date / Time iodine Allergy Lip Verified 07/10/20 12:42 Swelling shellfish derived [Shrimp] Allergy Swelling Verified 07/10/20 12:42 Surgical - Exam Vital Signs Temp Pulse Resp BP Pulse Ox 98.4 F 79 18 150/74 95 07/10/20 12:39 07/10/20 12:39 07/10/20 12:39 07/10/20 12:39 07/10/20 12:39 - General well developed, well nourished, no distress - Eyes PERRL - ENT normal pinna - Neck no masses - Respiratory normal expansion - Cardiovascular Rhythm: regular - Abdomen Abdomen: soft, non tender Results - Labs Abnormal Lab Results - Last 24 Hours (Table) 07/10/20 Range/Units 12:49 POC Glucose (mg/dL) 121 H (75-99) mg/dL Assessment and Plan Assessment: Diverticula this.. We'll perform colonoscopy.
[2020-07-10 14:23] VITALS: BP 124/83; PULSE 84
--- NOTE | 2020-07-10 14:24 | P.OP ---
Date of Procedure: 07/10/20 Preoperative Diagnosis: Diverticulitis Postoperative Diagnosis: Diverticulosis Procedure(s) Performed: Colonoscopy Anesthesia: MAC Surgeon: Karson Canseco Pathology: none sent Condition: stable Disposition: PACU Description of Procedure: Patient's placed on the endoscopy table in the lateral position. She received IV sedation. Digital rectal exam was performed which revealed no abnormalities. Flexible colonoscope was then placed patient anus and passed throughout the entire colon. The ileocecal valve was visualized. Cecum ascending and transverse colon appeared normal. Descending and sigmoid colon there was mild diverticulosis. There is no evidence of diverticulitis. Scope was then brought back the rectum and this appeared normal. Scope withdrawn for patient.
== END 2020-07-10 14:45 | disposition home or self-care (01) ==
LOC: ORWHC2ENDO 12:14
PROVIDERS: ATTEND Surgery
DX: K57.30 Diverticulosis of large intestine without perforation or abscess without bleeding (principal); J45.909 Unspecified asthma, uncomplicated; E11.9 Type 2 diabetes mellitus without complications; M79.7 Fibromyalgia; E78.5 Hyperlipidemia, unspecified; I10 Essential (primary) hypertension; M32.9 Systemic lupus erythematosus, unspecified; K08.89 Other specified disorders of teeth and supporting structures; K08.409 Partial loss of teeth, unspecified cause, unspecified class; G47.33 Obstructive sleep apnea (adult) (pediatric); K21.9 Gastro-esophageal reflux disease without esophagitis; Z86.718 Personal history of other venous thrombosis and embolism; Z98.890 Other specified postprocedural states; Z90.49 Acquired absence of other specified parts of digestive tract; Z90.710 Acquired absence of both cervix and uterus; Z91.89 Other specified personal risk factors, not elsewhere classified; Z87.891 Personal history of nicotine dependence; Z79.899 Other long term (current) drug therapy; Z79.82 Long term (current) use of aspirin; Z79.891 Long term (current) use of opiate analgesic; Z79.84 Long term (current) use of oral hypoglycemic drugs; Z91.048 Other nonmedicinal substance allergy status; Z91.013 Allergy to seafood; Z82.49 Family history of ischemic heart disease and other diseases of the circulatory system; Z80.9 Family history of malignant neoplasm, unspecified
CPT/HCPCS: 45378; J2704

== ENCOUNTER → 2021-01-17 | Outpatient (CLI) | payer BC, MEDICARE ==
[2021-01-17 11:39] LABS: Basophils % (A) 1 %; Eosinophils # (A) 0.2 k/uL (0-0.7); Eosinophils % (A) 3 %; HGB 13.2 gm/dL (11.4-16.0); Lymphocytes # (A) 1.6 k/uL (1.0-4.8); Lymphocytes % (A) 28 %; MCH 30.2 pg (25.0-35.0); MCHC 32.1 g/dL (31.0-37.0); MCV 94.3 fL (80.0-100.0); Mean Platelet Volume 7.9; Monocytes # (A) 0.3 k/uL (0-1.0); Monocytes % (A) 6 %; Neutrophils # (A) 3.3 k/uL (1.3-7.7); Neutrophils % (A) 60 %; Platelet Count 180 k/uL (150-450); RBC 4.35 m/uL (3.80-5.40); RDW 13.4 % (11.5-15.5); WBC 5.5 k/uL (3.8-10.6)
[2021-01-17 11:52] LABS: African American GFR (CKD) >90 (>60 ml/min/1.73 sqM); Anion Gap 12 mmol/L; Blood Urea Nitrogen 26 mg/dL (7-17); Calcium 10.2 mg/dL (8.4-10.2); Carbon Dioxide 25 mmol/L (22-30); Chloride 103 mmol/L (98-107); Glucose 214 mg/dL (74-99); Non-African American GFR(CKD) 81 (>60 ml/min/1.73 sqM); Sodium 140 mmol/L (137-145)
== END | disposition home or self-care (01) ==
LOC: LABPAT 10:46
PROVIDERS: ATTEND Orthopaedic Surgery
DX: Z01.812 Encounter for preprocedural laboratory examination (principal); M23.92 Unspecified internal derangement of left knee; R94.31 Abnormal electrocardiogram [ECG] [EKG]
CPT/HCPCS: 36415; 80048; 85025; 93005

== ENCOUNTER → 2021-01-26 | Day surgery (SDC) | payer BC, MEDICARE ==
[2021-01-22 16:23] VITALS: BMI 34.3
--- NOTE | 2021-01-25 11:44 | HP ---
HISTORY AND PHYSICAL CHIEF COMPLAINT: Left knee pain. HISTORY OF PRESENT ILLNESS: The patient is a 60-year-old female who presents with left knee pain for the past year. It has worsened recently. She notes swelling in addition to giving way with weight- bearing activities. She has tried previous injections, without much relief. She notes it bothers her daily. PAST MEDICAL HISTORY: Past medical history is significant for chronic low back pain, vyc-cvzsldf-zpthkwudd diabetes, gastroesophageal reflux disease, depression along with hypercholesterolemia. CURRENT MEDICATIONS: Aspirin, cyclobenzaprine, [place], losartan, metformin, omeprazole, pravastatin and Zoloft. ALLERGIES: IODINE. FAMILY HISTORY: Significant for renal disease, heart disease and cancer. SOCIAL HISTORY: Significant for previous tobacco use. REVIEW OF SYSTEMS: Sixteen-point review of systems is otherwise reviewed and noncontributory. PHYSICAL EXAMINATION: On examination, patient is approximately 5 feet 5 inches, 200 pounds of endomorphic habitus. HEENT exam is nonfocal. Neck is supple. She has painless passive motion of her left hip. Straight-leg raise is negative. Active motion of the left knee is minus 8 to 130 degrees of flexion. She has a trace effusion. She is tender about the medial joint line. Collaterals are stable, Alan is negative, Juliet's elicits medial pain. Her distal neurovascular exam appears intact in the left lower extremity. X-rays to include weight-bearing notch, lateral Merchant views of the left knee obtained in the office show mild medial compartment narrowing. MRI report from 12/28/2019 shows evidence of a medial meniscal tear. IMPRESSION: 1. Left knee synovitis. 2. History of lupus. 3. Internal derangement of left knee, possible medial meniscal tear. RECOMMENDATIONS: I talked to the patient at length regarding her condition and treatment options. At this point she is quite symptomatic, having pain and mechanical symptoms despite previous conservative measures. After thorough discussion, she opted to proceed with surgery. We will plan to proceed with arthroscopic evaluation with probable partial medial meniscectomy in addition to possible synovectomy. We will likely perform that as an outpatient procedure. MMODL / IJN: [id number] /
[~2021-01-26] MED LIST changes: +DEXAMETHASONE SOD PHOSPHATE 4 MG/ML 1 ML VIAL IV ONE; +EPINEPHrine (PF) 1 ML in SODIUM CHLORIDE 0.9% IRRIGATIO 3,000 ML IRRIGATION ONE; +HYDROcodone/APAP 10-325MG 1 EACH TAB ONE; +HYDROcodone/APAP 10-325MG 1 EACH TAB PO ONE; +HYDROmorphone 0.5 MG/0.5 ML SYRINGE IVP PRN; +KETOROLAC 15 MG/ML 1 ML VIAL ONE; -LACTATED RINGERS 1,000 ML IV SCH; +LIDOCAINE 1% (10MG/ML) FOR IV START INTRADERMA PRN; +LIDOCAINE 1% INJ 10MG/ML (20 ML MDV) ONE; +MIDAZOLAM 2 MG/2 ML VIAL IV PRN; +MIDAZOLAM 2 MG/2 ML VIAL ONE; +ONDANSETRON 4 MG/2 ML VIAL IVP ONE; +PROPOFOL 10 MG/ML 20 ML VIAL IV ONE; +fentaNYL (PF) 50 MCG/ML 2 ML AMP ONE
[2021-01-26] MEDS: LACTATED RINGERS 1,000 ML IV SCH ×2 (07:58→08:20)
[2021-01-26 08:19] LABS: Glucose,Whole Blood 114 mg/dL (75-99)
--- NOTE | 2021-01-26 09:35 | P.OP ---
Date of Procedure: 01/26/21 Preoperative Diagnosis: Left knee internal derangement Postoperative Diagnosis: Left knee posterior medial meniscal tear/reactive synovitis of the medial, lateral, and patellofemoral compartments Procedure(s) Performed: Left knee arthroscopic partial medial meniscectomy/partial synovectomy of the medial, lateral, and patellofemoral compartments Anesthesia: PAUL Surgeon: Ronal Burrows Estimated Blood Loss (ml): 10 Pathology: none sent Condition: stable Disposition: PACU Indications for Procedure: The patient's a 60-year-old female presents with progressive left knee pain and mechanical symptoms despite conservative measures. She also has a history of lupus and inflammatory arthritis. A discussion of the risks and benefits of operative intervention versus continued conservative measures was made with patient. She opted to proceed with surgery. Operative risks to include infection, neurovascular injury, development of blood clots, possible incomplete resolution of symptoms, possible worsening symptoms and need for subsequent procedures was discussed. Informed consent was obtained. Operative Findings: As below Description of Procedure: The patient was brought to the operating room, and after induction of general anesthesia examined the left knee. Collaterals were stable, Alan was negative, and posterior drawer was negative. The left lower extremity was prepped and draped in a normal fashion. A superior lateral portal was made through a 3 mm skin incision superior and lateral to the patella. This was used for outflow. A lateral portal was made through a 5 mm vertical skin incision lateral to the patella tendon above the joint line. Diagnostic arthroscopy was performed. On inspection of the medial compartment, a small radial tear involving the posterior third of the medial meniscus was noted in the white- white junction. This was debrided back to stable base with straight baskets and a motorized shaver. Grade 2-3 chondral changes were noted diffusely on the distal medial femoral condyle. Reactive synovitis involving the anteromedial compartment was noted impinging on the medial compartment. This was debrided back with a motorized shaver. On inspection of the notch, the anterior cruciate ligament appeared to be intact. On inspection of the lateral compartment, no significant meniscal pathology was noted. Again reactive synovitis involving the anterolateral compartment was noted and this was debrided with a motorized shaver On inspection of the patellofemoral articulation, there is chondral fibrillation however no loose chondral fragments. Again reactive synovitis was debrided with a motorized shaver. The gutters were clear debris. The knee was then thoroughly irrigated. The portals were closed with Steri-Strips. A sterile dressing was applied in addition to a compression stocking. The patient was awoken from general anesthesia and transferred to recovery room in good condition. Blood loss was estimated at 10 mL. No complications were incurred.
[2021-01-26 09:40] VITALS: TEMP 96.8
[2021-01-26 10:01] VITALS: RESP 18
[2021-01-26 11:26] VITALS: BP 117/72; PULSE 72
== END ==
LOC: OR 07:33
PROVIDERS: ATTEND Orthopaedic Surgery
DX: S83.242A Other tear of medial meniscus, current injury, left knee, initial encounter (principal); E78.00 Pure hypercholesterolemia, unspecified; K21.9 Gastro-esophageal reflux disease without esophagitis; M32.9 Systemic lupus erythematosus, unspecified; M65.9 Synovitis and tenosynovitis, unspecified; E11.9 Type 2 diabetes mellitus without complications; Z79.84 Long term (current) use of oral hypoglycemic drugs; Z79.82 Long term (current) use of aspirin; Z79.899 Other long term (current) drug therapy; Z82.49 Family history of ischemic heart disease and other diseases of the circulatory system; Z87.891 Personal history of nicotine dependence; Z88.8 Allergy status to other drugs, medicaments and biological substances; I10 Essential (primary) hypertension; E78.5 Hyperlipidemia, unspecified; M79.7 Fibromyalgia; G47.33 Obstructive sleep apnea (adult) (pediatric); Z99.81 Dependence on supplemental oxygen
CPT/HCPCS: 29881; J2250; J1100; J0690; J2405; J0171; J2001; J3010; J1885; J2704

== ENCOUNTER → 2022-04-25 | Outpatient (CLI) | payer BC, MEDICARE ==
--- NOTE | 2022-04-25 15:18 | BD ---
EXAMINATION TYPE: Axial Bone Density DATE OF EXAM: 04/25/2022 COMPARISON: 12.29.2018 CLINICAL HISTORY: 61 years year old Female. ICD-10 CODE: Z78.0 Asymptomatic menopausal Height: 64.4 Weight: 190 FRAX RISK QUESTIONS: Glucocorticoids (More than 3mos): YES (Ex: prednisone, prednisolone, methylprednisolone, dexamethasone, and hydrocortisone). Secondary Osteoporosis: YES 3. Menopause before 45: YES RISK FACTORS HISTORY OF: Postmenopausal woman: YES, 28 YRS OLD, TOTAL HYST. Take estrogen and/or progesterone medications: YES, FOR 1 YR ONLY, BLOODCLOTS Lost more than 2 inches in height since high school: YES Hyperparathyroidism: NO Adrenal Insufficiency: NO MEDICATIONS: Prednisone or other steroids: YES, FOR ASTHMA FOR ABOUT 5-6 YRS Additional Medications: BP MED, ZOLOFT, LEXAPRO, METFORMIN, REFLUX MEDS, STATIN FOR CHOLESTEROL, Additional History: HYPERTENSION, ANXIETY, DIABETIC, REFLUX, CHOLESTEROL, ASTHMA, EARLY MENOPAUSE, EXAM MEASUREMENTS: Bone mineral densitometry was performed using the [email or web address] System. Bone mineral density as measured about the Lumbar spine is: ----- L1-L4(G/cm2): 1.073 T Score Values are as follows: ----- L1: -1.0 ----- L2: -0.6 ----- L3: -1.2 ----- L4: -0.9 ----- L1-L4: -0.9 Bone mineral density has: Increased 7.5% SINCE...12.29.2018 Bone mineral density about the R hip (g/cm2): 1.091 Bone mineral density about the L hip (g/cm2): 1.053 T Score values are as follows: -----R Neck: -0.6 -----L Neck: -0.6 -----R Total: 0.7 -----L Total: 0.4 Bone mineral density has: Increased 0.2% SINCE: 12.29.2018 STUDY FRAX%s: The graph provided illustrates A 4.9% CHANCE FOR A MAJOR OSTEOPOROTIC FX AND A 0.4% CHANCE FO R HIPS: PROBABILITY FOR FX IN 10 YRS TIME IMPRESSION: Osteopenia (T Score between -2.5 and -1). There is slightly increased risk of fracture and the patient may be considered for treatment. Re-Screen 2-5 years. NOTE: T-SCORE=SD OF THE YOUNG ADULT MEAN.
--- NOTE | 2022-04-26 08:22 | MM ---
Reason for Exam: Screening (asymptomatic). Last mammogram was performed 4 year(s) and 0 month(s) ago. Patient History: Menarche at age 13. First Full-Term at age 18. Left ovary removed at age 22. Right ovary removed at age 22. Hysterectomy at age 22. Postmenopausal. Estrogen, starting at age 22 for 3 years. Patient used Hormonal Contraceptives for 2 years. Benign Excisional Biopsy on the left side. 09/26/2009, High risk Excisional Biopsy on the left side. 06/14/2009, High risk Core Biopsy on the left side. Sister had breast cancer, age 42. Risk Values: Alejandra 5 year model risk: 4.0%. NCI Lifetime model risk: 19.1%. Prior Study Comparison: 04/02/2016 Bilateral Screening Mammogram, [facility]. 04/16/2017 Bilateral Screening Mammogram, [facility]. 04/22/2018 Bilateral Screening Mammogram, [facility]. Tissue Density: The breast tissue is heterogeneously dense. This may lower the sensitivity of mammography. Findings: Analyzed By CAD. There is no suspicious group of microcalcifications or new suspicious mass in either breast. Overall Assessment: Benign, BI-RAD 2 Management: Screening Mammogram of both breasts in 1 year. A clinical breast exam by your physician is recommended on an annual basis and results should be correlated with mammographic findings. Electronically signed and approved by: Star Fish M.D. Radiologis
== END | disposition home or self-care (01) ==
LOC: RADMAMWWP 11:42
PROVIDERS: ATTEND Family Medicine
DX: Z12.31 Encounter for screening mammogram for malignant neoplasm of breast (principal); M85.88 Other specified disorders of bone density and structure, other site; Z78.0 Asymptomatic menopausal state; Z80.3 Family history of malignant neoplasm of breast; Z98.890 Other specified postprocedural states
CPT/HCPCS: 77063; 77067; 77080

== ENCOUNTER 2023-02-06 06:51 | Day surgery (SDC) | payer BC, MEDICARE ==
[2023-02-06] MEDS ORDERED: LACTATED RINGERS 1,000 ML IV SCH (06:56)
[2023-02-06 07:09] VITALS: TEMP 97.1
[2023-02-06 07:19] LABS: Glucose,Whole Blood 116 mg/dL (70-110)
[2023-02-06] MEDS ORDERED: LIDOCAINE 2% INJ 20 MG/ML (2 ML VIAL) ONE (08:10)
[2023-02-06] MEDS ORDERED: PROPOFOL 10 MG/ML 20 ML VIAL IV ONE (08:10)
--- NOTE | 2023-02-06 08:15 | P.GSHP ---
History of Present Illness H&P Date: 02/06/23 Chief Complaint: GERD This 62-year-old female with history of GERD. Patient presents today for EGD. Past Medical History Past Medical History: Asthma, Diabetes Mellitus, Deep Vein Thrombosis (DVT), Fibromyalgia, Hyperlipidemia, Hypertension, Osteoarthritis (OA), Renal Disease, Sleep Apnea/CPAP/BIPAP Additional Past Medical History / Comment(s): hx of nikia DVT, Lupus, diverticulitis, sore stomach, black stools off and on for 3 weeks. watching protein in urine. to see specialist 02/18/23 History of Any Multi-Drug Resistant Organisms: None Reported Past Surgical History: Bladder Surgery, Cholecystectomy, Hysterectomy, Orthopedic Surgery Additional Past Surgical History / Comment(s): LEFT FOOT SURGERY; [facility]; benign left breast tumor, colonoscopy.egd Past Anesthesia/Blood Transfusion Reactions: Postoperative Nausea & Vomiting (PONV) Smoking Status: Former smoker - Past Family History Father Family Medical History: Coronary Artery Disease (CAD), Myocardial Infarction ([place]) Mother Family Medical History: Cancer Additional Family Medical History / Comment(s): Female organs Sister(s) Family Medical History: Cancer Additional Family Medical History / Comment(s): breast Medications and Allergies Home Medications Medication Instructions Recorded Confirmed Type Fenofibrate Nanocrystallized 145 mg PO HS 12/21/13 02/06/23 History [Tricor] Losartan-Hctz 50-12.5 mg [Hyzaar 1 tab PO DAILY 12/21/13 02/06/23 History 50-12.5] Pravastatin Sodium [Pravachol] 40 mg PO HS 12/21/13 02/06/23 History Aspirin 325 mg PO DAILY 12/16/14 02/06/23 History Albuterol Sulfate [Ventolin HFA] 1 - 2 puff INHALATION DIRECTED 06/15/19 02/06/23 History PRN Cranberry Tab 420 mg PO DAILY 06/15/19 02/06/23 History Sertraline [Zoloft] 100 mg PO HS 06/15/19 02/06/23 History Biotin 5 mg PO DAILY 07/06/20 02/06/23 History Cyclobenzaprine [Flexeril] 10 mg PO BID 07/06/20 02/06/23 History Hydrocodone/Acetaminophen [Lorcet 1 tab PO TID 07/06/20 02/06/23 History Hd 10-325 mg Tablet] metFORMIN HCL [metFORMIN HCL ER] 500 mg PO BID 07/06/20 02/06/23 History Diphenox-Atrop 2.5-0.025 mg 2.5 mg PO BID 02/04/23 02/06/23 History [Lomotil] Allergies Allergy/AdvReac Type Severity Reaction Status Date / Time Iodinated Contrast Media Allergy dyspnea, Verified 02/06/23 07:05 lip swelling iodine Allergy Lip Verified 02/06/23 07:05 Swelling shellfish derived [Shrimp] Allergy Swelling Verified 02/06/23 07:05 Surgical - Exam Vital Signs Temp Pulse Resp BP Pulse Ox 97.1 F L 84 18 150/79 96 02/06/23 07:08 02/06/23 07:08 02/06/23 07:08 02/06/23 07:08 02/06/23 07:08 - General well developed, well nourished, no distress - Eyes PERRL - ENT normal pinna - Respiratory normal expansion - Cardiovascular Rhythm: regular - Abdomen Abdomen: soft, non tender Results - Labs Abnormal Lab Results - Last 24 Hours (Table) 02/06/23 Range/Units 07:14 POC Glucose (mg/dL) 116 H (70-110) mg/dL Assessment and Plan Assessment: GERD. We'll perform EGD.
--- NOTE | 2023-02-06 08:23 | P.OP ---
Date of Procedure: 02/06/23 Preoperative Diagnosis: GERD Postoperative Diagnosis: Antral gastritis Procedure(s) Performed: EGD Anesthesia: MAC Surgeon: Karson Canseco Pathology: other (Antrum, esophagus) Condition: stable Disposition: PACU Description of Procedure: The patient's placed on the endoscopy table in the lateral position. She received IV sedation. The gastroscope. Scope was then placed through the pylorus. The first and second portion of the duodenum appeared normal. Scope was then brought back the antrum and this appeared mildly inflamed. A biopsies performed. Scope was unretroflexed and remainder the stomach appeared normal. The GE junction was at 40 cm. The distal esophagus appeared normal. Due to the patient's symptoms of GERD a biopsy was performed. The proximal esophagus appeared normal. Scope withdrawn for patient.
[2023-02-06 08:32] VITALS: RESP 16
[2023-02-06 08:46] VITALS: BP 133/81; PULSE 87
== END 2023-02-06 09:31 | disposition home or self-care (01) ==
LOC: ORWHC2ENDO 06:51
PROVIDERS: ATTEND Surgery
DX: K29.50 Unspecified chronic gastritis without bleeding (principal); K21.00 Gastro-esophageal reflux disease with esophagitis, without bleeding; J45.909 Unspecified asthma, uncomplicated; E11.9 Type 2 diabetes mellitus without complications; E78.5 Hyperlipidemia, unspecified; I10 Essential (primary) hypertension; Z86.718 Personal history of other venous thrombosis and embolism; Z90.710 Acquired absence of both cervix and uterus; Z90.49 Acquired absence of other specified parts of digestive tract; Z98.890 Other specified postprocedural states; Z87.891 Personal history of nicotine dependence; Z79.899 Other long term (current) drug therapy; Z79.82 Long term (current) use of aspirin
CPT/HCPCS: 88305; 43239; J2704; J2001

== ENCOUNTER → 2023-02-27 | Outpatient (CLI) | payer BC, MEDICARE ==
[2023-02-28 01:48] LABS: HGB 13.1 d/dL (12.0-15.0); MCH 28.9 pg (27.0-32.0); MCHC 30.5 d/dL (32.0-37.0); MCV 94.9 FL (80.0-97.0); Mean Platelet Volume 10.8 FL (9.5-12.2); NRBC Per 100 WBC 0 X 10*3/uL (0.00-0.01); Platelet Count 215 X 10*3/uL (140-440); RBC 4.53 X 10*6/uL (4.10-5.20); RDW 13.3 % (11.5-14.5); WBC 5.93 X 10*3/uL (4.50-10.00)
== END | disposition home or self-care (01) ==
LOC: LABWHC1 15:08
PROVIDERS: ATTEND Internal Medicine Nephrology
DX: I10 Essential (primary) hypertension (principal); E11.21 Type 2 diabetes mellitus with diabetic nephropathy; R80.9 Proteinuria, unspecified
CPT/HCPCS: 36415; 82040; 85027

== ENCOUNTER → 2023-07-10 | Outpatient (CLI) | payer BC, MEDICARE ==
--- NOTE | 2023-07-11 09:06 | MM ---
Reason for Exam: Screening (asymptomatic). Last mammogram was performed 1 year(s) and 3 month(s) ago. Patient History: Menarche at age 13. First Full-Term at age 18. Left ovary removed at age 22. Right ovary removed at age 22. Hysterectomy at age 22. Postmenopausal. Estrogen, starting at age 22 for 3 years. Patient used Hormonal Contraceptives for 2 years. Benign Excisional Biopsy on the left side. 09/26/2009, High risk Excisional Biopsy on the left side. 06/14/2009, High risk Core Biopsy on the left side. Sister had breast cancer, age 42. Risk Values: Alejandra 5 year model risk: 4.1%. NCI Lifetime model risk: 18.6%. Prior Study Comparison: 04/16/2017 Bilateral Screening Mammogram, [facility]. 04/22/2018 Bilateral Screening Mammogram, [facility]. 04/25/2022 Bilateral MG 3D screening mammo w/cad, [facility]. Tissue Density: The breast tissue is heterogeneously dense. This may lower the sensitivity of mammography. Findings: Analyzed By CAD. There is no suspicious group of microcalcifications or new suspicious mass in either breast. Overall Assessment: Benign, BI-RAD 2 Management: Screening Mammogram of both breasts in 1 year. . Patient should continue monthly self-breast exams. A clinical breast exam by your physician is recommended on an annual basis. This exam should not preclude additional follow-up of suspicious palpable abnormalities. Note on Alejandra scores and lifetime risk: 1. A Alejandra score greater than 3% is considered moderate risk. If this is the case, consider specialist referral to assess eligibility for a risk reducing agent. 2. If overall lifetime risk for the development of breast cancer is 20% or higher, the patient may qualify for future screening with alternating mammogram and breast MRI. Electronically signed and approved by: Star Fish M.D. Radiologis
== END | disposition home or self-care (01) ==
LOC: RADMAMWWP 14:50
PROVIDERS: ATTEND Family Medicine
DX: Z12.31 Encounter for screening mammogram for malignant neoplasm of breast (principal); Z80.3 Family history of malignant neoplasm of breast; Z78.0 Asymptomatic menopausal state
CPT/HCPCS: 77063; 77067

== ENCOUNTER 2023-07-28 05:54 | Day surgery (SDC) | payer BC, MEDICARE ==
[2023-07-24 09:22] VITALS: BMI 29.0
[~2023-07-28 05:54] MED LIST changes: +ACETAMINOPHEN TAB 500 MG TAB PO PRN; -DEXAMETHASONE SOD PHOSPHATE 4 MG/ML 1 ML VIAL IV ONE; -EPINEPHrine (PF) 1 ML in SODIUM CHLORIDE 0.9% IRRIGATIO 3,000 ML IRRIGATION ONE; -HYDROcodone/APAP 10-325MG 1 EACH TAB ONE; -HYDROcodone/APAP 10-325MG 1 EACH TAB PO ONE; -HYDROmorphone 0.5 MG/0.5 ML SYRINGE IVP PRN; -KETOROLAC 15 MG/ML 1 ML VIAL ONE; -LIDOCAINE 1% (10MG/ML) FOR IV START INTRADERMA PRN; -LIDOCAINE 1% INJ 10MG/ML (20 ML MDV) ONE; -MIDAZOLAM 2 MG/2 ML VIAL IV PRN; -MIDAZOLAM 2 MG/2 ML VIAL ONE; -ONDANSETRON 4 MG/2 ML VIAL IVP ONE; -PROPOFOL 10 MG/ML 20 ML VIAL IV ONE; +Pre Op ABX Message 1 EACH MISC MISCELLANE ONE; -fentaNYL (PF) 50 MCG/ML 2 ML AMP ONE
[2023-07-28] MEDS: ONDANSETRON 4 MG/2 ML VIAL IVP ONE (07:00)
[2023-07-28] MEDS ORDERED: HYDROmorphone 0.5 MG/0.5 ML SYRINGE IVP PRN (07:00)
[2023-07-28] MEDS: DEXAMETHASONE SOD PHOSPHATE 4 MG/ML 1 ML VIAL IV ONE (07:00)
[2023-07-28] MEDS: HEPARIN SODIUM,PORCINE 5,000 UNIT/ML 1 ML VIAL SQ PRN (07:00)
[2023-07-28 07:01] LABS: Glucose,Whole Blood 108 mg/dL (70-110)
[2023-07-28] MEDS: LACTATED RINGERS 1,000 ML IV SCH (07:10)
[2023-07-28] MEDS ORDERED: SUCCINYLCHOLINE CHLORIDE 200 MG/10 ML VIAL IV ONE (07:45)
[2023-07-28] MEDS ORDERED: LIDOCAINE 1% INJ 10MG/ML (20 ML MDV) ONE (07:45)
[2023-07-28] MEDS ORDERED: PROPOFOL 10 MG/ML 20 ML VIAL IV ONE (07:45)
[2023-07-28] MEDS ORDERED: MIDAZOLAM 2 MG/2 ML VIAL ONE (07:45)
[2023-07-28] MEDS: LIDOCAINE 2%-EPI 1:100,000 20 ML VIAL SQ ONE ×2 (07:45→08:13)
[2023-07-28] MEDS ORDERED: fentaNYL (PF) 50 MCG/ML 2 ML AMP ONE (07:45)
[2023-07-28] MEDS: SODIUM CHLORIDE 0.9% 50 ML with ceFAZolin 2,000 MG IV ONE (07:46)
--- NOTE | 2023-07-28 08:36 | P.OP ---
Date of Procedure: 07/28/23 Preoperative Diagnosis: Left back lipoma Postoperative Diagnosis: Left back lipoma Procedure(s) Performed: Excision of left back lipoma Anesthesia: PAUL Surgeon: Karson Canseco Estimated Blood Loss (ml): 5 Pathology: other (Back lipoma) Condition: stable Disposition: PACU Operative Findings: 10 cm lipoma Description of Procedure: The patient was placed on the operative table in the supine position. She received general anesthesia. Patient was rotated with the left side up. Her left back was prepped draped in sterile fashion. A skin incision was made over the lipoma. Then using blunt sharp/electrocautery the lipoma was dissected free. The specimen to pathology. Hemostasis achieved. Skin was then closed with interrupted 3-0 nylon suture. Sterile dressing applied. Patient tolerated well.
[2023-07-28 08:37] VITALS: RESP 16; TEMP 97
[2023-07-28 08:51] LABS: Glucose,Whole Blood 172 mg/dL (70-110)
[2023-07-28 10:14] VITALS: BP 125/72; PULSE 90
== END 2023-07-28 10:32 | disposition home or self-care (01) ==
LOC: OR 05:54
PROVIDERS: ATTEND Surgery
DX: D17.1 Benign lipomatous neoplasm of skin and subcutaneous tissue of trunk (principal); I10 Essential (primary) hypertension; E78.5 Hyperlipidemia, unspecified; G47.33 Obstructive sleep apnea (adult) (pediatric); E11.9 Type 2 diabetes mellitus without complications; M79.7 Fibromyalgia; Z79.84 Long term (current) use of oral hypoglycemic drugs; Z79.899 Other long term (current) drug therapy; Z86.718 Personal history of other venous thrombosis and embolism; Z90.710 Acquired absence of both cervix and uterus; Z90.49 Acquired absence of other specified parts of digestive tract; Z98.890 Other specified postprocedural states; Z91.013 Allergy to seafood; Z91.041 Radiographic dye allergy status
CPT/HCPCS: 11406; 88304; J2250; J0330; J1644; J1100; J2405; J0690; J2001; J3010; J2704

== ENCOUNTER → 2024-11-17 | Outpatient (CLI) | payer MEDICARE ==
--- NOTE | 2024-11-18 07:55 | MM ---
Reason for Exam: Screening (asymptomatic). Last mammogram was performed 1 year(s) and 4 month(s) ago. Patient History: Menarche at age 13. First Full-Term at age 18. Left ovary removed at age 22. Right ovary removed at age 22. Hysterectomy at age 22. Postmenopausal. Estrogen, starting at age 22 for 3 years. Patient used Hormonal Contraceptives for 2 years. Benign Excisional Biopsy on the left side. 09/26/2009, High risk Excisional Biopsy on the left side. 06/14/2009, High risk Core Biopsy on the left side. Sister had breast cancer, age 42. Risk Values: Alejandra 5 year model risk: 4.4%. NCI Lifetime model risk: 17.6%. Prior Study Comparison: 04/22/2018 Bilateral Screening Mammogram, [facility]. 04/25/2022 Bilateral MG 3D screening mammo w/cad, [facility]. 07/10/2023 Bilateral MG 3D screening mammo w/cad, [facility]. Tissue Density: The breasts are heterogeneously dense, which may obscure small masses. Findings: Analyzed By CAD. There is no suspicious group of microcalcifications or new suspicious mass in either breast. Benign-appearing calcifications. Overall Assessment: Benign, BI-RAD 2 Management: Screening Mammogram of both breasts in 1 year. . Patient should continue monthly self-breast exams. A clinical breast exam by your physician is recommended on an annual basis. This exam should not preclude additional follow-up of suspicious palpable abnormalities. Note on Alejandra scores and lifetime risk: 1. A Alejandra score greater than 3% is considered moderate risk. If this is the case, consider specialist referral to assess eligibility for a risk reducing agent. 2. If overall lifetime risk for the development of breast cancer is 20% or higher, the patient may qualify for future screening with alternating mammogram and breast MRI. [facility], , 11/18/2024 7:52 AM. Electronically signed and approved by: Joel Sears M.D. Radiologis
--- NOTE | 2024-11-18 08:45 | BD ---
EXAMINATION TYPE: Axial Bone Density DATE OF EXAM: 11/17/2024 CLINICAL HISTORY: 64 years old Female. ICD-10 CODE: [id number] SCREENING FOR OSETO , Additional History: Height: 64.75 Weight: 186.1 FRAX RISK QUESTIONS: Alcohol (3 or more units per day): no Family History (Parent hip fracture): no Glucocorticoids (More than 3mos): no (Ex: prednisone, prednisolone, methylprednisolone, dexamethasone, and hydrocortisone). History of Fracture in Adulthood: no Secondary Osteoporosis: 1. Type 1 Diabetes: no 2. Hyperthyroidism: no 3. Menopause before 45: yes 4. Malnutrition: no 5. Chronic liver disease: no Rheumatoid Arthritis: no Current Tobacco Use: no RISK FACTORS HISTORY OF: Hip Fracture (Right/Left): no Spine Fracture: no History of Wrist Fracture: no Surgery to Spine/Hip(right/left)/Wrist (right/left): no MEDICATIONS: Thyroid Medications: no Osteoporosis Medications: no EXAM MEASUREMENTS: Bone mineral densitometry was performed using the [employer] System. Bone mineral density as measured about the Lumbar spine is: ----- L1-L4(G/cm2): 1.129 T Score Values are as follows: ----- L1: -1.3 ----- L2: -0.9 ----- L3: -1.0 ----- L4: 0.8 ----- L1-L4: -0.4 Z Score Values are as follows: ----- L1: -0.5 ----- L2: -0.1 ----- L3: -0.2 ----- L4: 1.6 ----- L1-L4: 0.4 Bone mineral density has: increased 5.2 % since study of: 04/25/2022 Bone mineral density about the R hip (g/cm2): 1.049 Bone mineral density about the L hip (g/cm2): 1.038 T Score values are as follows: -----R Neck: -0.9 -----L Neck: -0.7 -----R Total: 0.3 -----L Total: 0.2 Z Score values are as follows: -----R Neck: 0.0 -----L Neck: 0.2 -----R Total: 1.0 -----L Total: 0.9 Bone mineral density has: decreased -2.7 % since study of: 04/25/2022 FRAX%s: The graph provided illustrates a 3.4% chance for a major osteoporotic fx and a 0.4% chance fo r the hips probability for fx in 10 years time. IMPRESSION: Normal (Values between +1 and -1 indicate normal bone mass). Consider repeating this study in 5 year s or sooner if there is some new clinical indication. NOTE: T-SCORE=SD OF THE YOUNG ADULT MEAN. [facility], , 11/18/2024 8:43 AM
== END | disposition home or self-care (01) ==
LOC: RADMAMWWP 16:01
PROVIDERS: ATTEND Family Medicine
DX: Z12.31 Encounter for screening mammogram for malignant neoplasm of breast (principal); Z13.820 Encounter for screening for osteoporosis; R92.333 Mammographic heterogeneous density, bilateral breasts; R92.1 Mammographic calcification found on diagnostic imaging of breast; Z78.0 Asymptomatic menopausal state; Z80.3 Family history of malignant neoplasm of breast; Z92.0 Personal history of contraception
CPT/HCPCS: 77063; 77067; 77080